=== PATIENT | female | born 1955 | race African-American/Black ===

== ENCOUNTER 2018-08-21 21:22 | Inpatient (IN) | payer MEDICAID ==
[~2018-08-21] VITALS: Ht 165.1 cm; Wt 72.6 kg
[~2018-08-21 21:22] MED LIST: CYAN250010 PO; DIPH25CA83 PO; FERR325T6 PO; FURO-151 PO; FURO80TA87 PO; HYDR-4009 PO; QUET25TA PO; RANI150T43 PO; SIMV20TA2 PO; ZOLP10TA2 PO
[2018-08-22 02:29] LABS: BASOPHILS % 1.6 % (0.0-2.0); EOSINOPHILS % 1.7 % (0.0-5.0); HEMATOCRIT. 43.1 % (36.0-48.0); HEMOGLOBIN. 14.7 g/dL (12.0-16.0); LYMPHOCYTES % 39.2 % (20.0-50.0); MEAN CORPUSCULAR HEMOGLOBIN 29.1 pg (28.0-32.0); MEAN CORPUSCULAR VOLUME 85.1 fL (81.0-99.0); MEAN PLATELET VOLUME 9.1 fl (7.4-10.4); MONOCYTES % 6.3 % (2.0-8.0); NEUTROPHILS % 51.2 % (40.0-76.0); PLATELET 206 x1000/uL (130-400); RED BLOOD CELL COUNT 5.06 mill/uL (4.2-5.4); RED CELL DISTRIBUTION WIDTH 15.4 % (11.6-14.6)
[2018-08-22 02:58] LABS: CHLORIDE 100 mEq/L (98-107)
[2018-08-22] MEDS ORDERED: NITROGLYCERIN OINT 1GM/INCH UDPKT TD ONE (03:30)
[2018-08-22] MEDS ORDERED: ACETAMINOPHEN 325MG TABLET PO ONE (03:45)
[2018-08-22] MEDS ORDERED: DIPHENHYDRAMINE 50MG/ML VIAL IV PRN (08:00)
[2018-08-22] MEDS ORDERED: GUAIFENESIN 200MG/10ML SUGAR FREE UDC PO PRN (08:00)
[2018-08-22] MEDS ORDERED: IPRATROPIUM/ALBUTEROL 0.5-3(2.5)MG/3ML NEB INH PRN (08:00)
[2018-08-22] MEDS ORDERED: ONDANSETRON HCL 4MG/2ML INJ IV PRN (08:00)
[2018-08-22] MEDS ORDERED: HYDRALAZINE 20MG/ML VIAL IV PRN (08:00)
[2018-08-22] MEDS ORDERED: DOCUSATE SODIUM 100MG CAPSULE PO PRN (08:00)
[2018-08-22] MEDS ORDERED: ACETAMINOPHEN 325MG TABLET PO PRN (08:00)
[2018-08-22] MEDS ORDERED: NA PHOS,M-B/NA PHOS,DI-BA ENEMA 118ML PR PRN (08:00)
[2018-08-22] MEDS ORDERED: CLONIDINE 0.1MG TABLET PO PRN (08:00)
[2018-08-22] MEDS ORDERED: LORAZEPAM 2MG/ML CPJ IV PRN (08:00)
[2018-08-22] MEDS ORDERED: MAGNESIUM/ALUMINUM HYDROXIDE/SIMETHICONE 30ML UDC PO PRN (08:00)
[2018-08-22 10:00] VITALS: BP 128/80
[2018-08-22] MEDS: ENOXAPARIN 40MG/0.4ML SYR SUBCUT SCH (11:18)
[2018-08-22] MEDS: ASPIRIN 81MG EC TABLET PO SCH (11:18)
[2018-08-22 12:00] VITALS: BP 105/71
[2018-08-22] MEDS ORDERED: MIRT15TA6 MT (12:31)
[2018-08-22] MEDS ORDERED: METR250T36 PO (12:41)
[2018-08-22] MEDS ORDERED: [UNRECOGNIZED DRUG - CODE] PO (12:41)
[2018-08-22] MEDS ORDERED: SUCR1TAB PO (12:41)
[2018-08-22] MEDS ORDERED: VITA1TAB20 MT (12:41)
[2018-08-22] MEDS ORDERED: AM500 MT (12:41)
[2018-08-22] MEDS ORDERED: CIPR500S3 PO (12:41)
[2018-08-22] MEDS ORDERED: TIZA4CAP6 PO (12:41)
[2018-08-22] MEDS ORDERED: HYDR12.529 PO (12:41)
[2018-08-22] MEDS ORDERED: TIZA4TAB4 PO (12:41)
[2018-08-22] MEDS ORDERED: DIPH25TA23 PO (12:41)
[2018-08-22] MEDS ORDERED: ASPI-1159 PO (12:41)
[2018-08-22] MEDS ORDERED: FAMO20TA8 PO (12:41)
[2018-08-22 15:17] LABS: CREATINE KINASE 212 IU/L (26-192)
[2018-08-22 15:18] LABS: CREATINE KINASE MB FRACTION 1.4 ng/mL (0.5-3.6)
[2018-08-22] MEDS: SODIUM CHLORIDE 0.9% INJ 3ML FLUSH IVF SCH ×2 (15:59→20:52)
[2018-08-22 16:00] VITALS: BP 121/85
[2018-08-22] MEDS ORDERED: ZOLPIDEM TARTRATE 5MG TABLET PO PRN (16:30)
[2018-08-22] MEDS ORDERED: HYDROCODONE/ACETAMINOPHEN 10/325MG TABLET PO PRN (16:30)
[2018-08-22 20:00] VITALS: BP 119/71
[2018-08-22 20:02] LABS: *AMPHETAMINES SCREEN URINE NEGATIVE (NEGATIVE); *BENZODIAZEPINES SCREEN URINE NEGATIVE (NEGATIVE); *COCAINE SCREEN URINE NEGATIVE (NEGATIVE); OPIATES URINE SCREEN NEGATIVE (NEGATIVE)
[2018-08-22 20:03] LABS: *BARBITURATES SCREEN URINE NEGATIVE (NEGATIVE); CANNABINOID URINE SCREEN NEGATIVE (NEGATIVE); METHADONE URINE SCREEN NEGATIVE (NEGATIVE); PHENCYCLIDINE URINE SCREEN NEGATIVE (NEGATIVE)
[2018-08-23] VITALS: BP 120/76
[2018-08-23 00:12] LABS: CREATINE KINASE 361 IU/L (26-192)
[2018-08-23 00:13] LABS: CREATINE KINASE MB FRACTION 1.9 ng/mL (0.5-3.6)
[2018-08-23 04:00] VITALS: BP 119/57
[2018-08-23 06:25] LABS: BASOPHILS % 0.9 % (0.0-2.0); EOSINOPHILS % 1.5 % (0.0-5.0); HEMATOCRIT. 40.2 % (36.0-48.0); HEMOGLOBIN. 13.4 g/dL (12.0-16.0); LYMPHOCYTES % 49.7 % (20.0-50.0); MEAN CORPUSCULAR HEMOGLOBIN 28.8 pg (28.0-32.0); MEAN CORPUSCULAR VOLUME 86.4 fL (81.0-99.0); MONOCYTES % 6.2 % (2.0-8.0); NEUTROPHILS % 41.7 % (40.0-76.0); PLATELET 166 x1000/uL (130-400); RED BLOOD CELL COUNT 4.66 mill/uL (4.2-5.4)
[2018-08-23] MEDS: SODIUM CHLORIDE 0.9% INJ 3ML FLUSH IVF SCH (06:33)
[2018-08-23 06:40] LABS: CHLORIDE 106 mEq/L (98-107)
[2018-08-23 06:57] LABS: HDL CHOLESTEROL 62 mg/dL (40-59); T4 FREE 0.95 ng/dL (0.76-1.46)
[2018-08-23 07:10] LABS: LDL CHOLESTEROL 137 mg/dL (5-100)
[2018-08-23 07:46] VITALS: BP 103/80
[2018-08-23 08:00] VITALS: BP 103/80
[2018-08-23] MEDS: ASPIRIN 81MG EC TABLET PO SCH (08:25)
[2018-08-23] MEDS: ENOXAPARIN 40MG/0.4ML SYR SUBCUT SCH (08:26)
== END 2018-08-23 12:17 | disposition home or self-care (01) | DRG 203 ==
LOC: ER 21:22 → 8WST 08-22 03:41 → EDBEDREQTM 08-22 03:43 → EDBEDREQ 08-22 03:43 → ENRESERV 08-22 07:16
PROVIDERS: ADMIT Internal Medicine; ATTEND Internal Medicine
DX: M94.0 Chondrocostal junction syndrome [Tietze] (principal); E78.5 Hyperlipidemia, unspecified; F41.9 Anxiety disorder, unspecified; G47.00 Insomnia, unspecified; I12.9 Hypertensive chronic kidney disease with stage 1 through stage 4 chronic kidney disease, or unspecified chronic kidney disease; N18.9 Chronic kidney disease, unspecified; K21.9 Gastro-esophageal reflux disease without esophagitis; Z79.82 Long term (current) use of aspirin; Z79.899 Other long term (current) drug therapy; Z90.5 Acquired absence of kidney; Z98.84 Bariatric surgery status; Z88.8 Allergy status to other drugs, medicaments and biological substances; Z88.6 Allergy status to analgesic agent; Z91.041 Radiographic dye allergy status; Z79.2 Long term (current) use of antibiotics; Z90.49 Acquired absence of other specified parts of digestive tract
CPT/HCPCS: 36415; 71045; 80061; 80305; 82550; 82553; 84439; 84443; 84484; 93005; 93306; 96372; 99285; C1893; J1650; J2060

== ENCOUNTER 2022-09-11 13:58 | Emergency (ER) | payer MEDICARE, MEDICAID ==
[~2022-09-11] VITALS: Ht 160 cm; Wt 81.4 kg
[~2022-09-11 13:58] MED LIST changes: +CLON0.2T MT; -CYAN250010 PO; -DIPH25CA83 PO; +DIPH25TA23 PO; -FERR325T6 PO; -FURO-151 PO; -FURO80TA87 PO; -QUET25TA PO; -RANI150T43 PO; +SIMV-343 PO; -SIMV20TA2 PO; +TIZA4CAP MT
[2022-09-11] MEDS ORDERED: PANTOPRAZOLE SODIUM 40 MG/VIAL IV ONE (14:30)
[2022-09-11] MEDS ORDERED: ONDANSETRON HCL 4MG/2ML INJ IV ONE (14:30)
[2022-09-11 14:56] LABS: CLARITY URINE CLEAR (CLEAR); COLOR URINE YELLOW (YELLOW); KETONES URINE NEGATIVE (NEGATIVE); LEUKOCYTE ESTERASE URINE NEGATIVE (NEGATIVE); NITRITE URINE NEGATIVE (NEGATIVE); OCCULT BLOOD URINE NEGATIVE (NEGATIVE); PROTEIN URINE NEGATIVE (NEGATIVE); SPECIFIC GRAVITY URINE 1.022 (1.005-1.030)
[2022-09-11 15:17] LABS: BASOPHILS % 0.8 % (0.0-2.0); EOSINOPHILS % 2.4 % (0.0-5.0); HEMATOCRIT. 35.6 % (36.0-48.0); HEMOGLOBIN. 11.5 g/dL (12.0-16.0); LYMPHOCYTES % 35.9 % (20.0-50.0); MEAN CORPUSCULAR HEMOGLOBIN 26.3 pg (28.0-32.0); MEAN CORPUSCULAR VOLUME 81.5 fL (81.0-99.0); MEAN PLATELET VOLUME 9.2 fl (7.4-10.4); NEUTROPHILS % 54.9 % (40.0-76.0); PLATELET 236 x1000/uL (130-400); RED BLOOD CELL COUNT 4.37 mill/uL (4.2-5.4); RED CELL DISTRIBUTION WIDTH 17.8 % (11.6-14.6)
[2022-09-11 15:23] LABS: CHLORIDE 111 mEq/L (98-107)
[2022-09-11 17:45] VITALS: BP 160/74
== END 2022-09-11 19:05 | disposition home or self-care (01) ==
LOC: ER 14:06
DX: R10.84 Generalized abdominal pain (principal); R11.2 Nausea with vomiting, unspecified; I11.9 Hypertensive heart disease without heart failure; Z90.89 Acquired absence of other organs; Z88.5 Allergy status to narcotic agent; Z88.8 Allergy status to other drugs, medicaments and biological substances
CPT/HCPCS: 36415; 74176; 80053; 81003; 84484; 85025; 93005; 99284; 99285